=== PATIENT | male | born 1940 | race Caucasian/White ===

== ENCOUNTER 2016-07-23 17:13 | Inpatient (IN) ==
--- NOTE | 2016-07-23 18:01 | Emergency Department Note ---
Arrival - Arrival ED Nursing Triage Note: Patient with a history of prostate and bladder cancer presents for urinary retention last Friday. His scrotum is edematous and erythema is present. Abscess present to left of his scrotum. Highest fever today 101.3 Mode of Arrival: Stretcher Limitations: No Limitations Source: Patient <Jacob Monrealmaria Bernardo - Last Filed: 07/23/16 17:59> <Gómez Bartlett - Last Filed: 07/23/16 20:02> - Arrival Chief Complaint: Urogenital - Male Stated Complaint: urinary retention Time Seen by Provider: 07/23/16 17:55 - History of Present Illness HPI Narrative: This is a 75-year-old male patient who presents the ED complaining of inability to urinate. Patient has a history of prostate cancer and also squamous cell carcinoma of the bladder. He is presently going undergoing radiation treatment and is on his seventh week of radiation to his bladder. Patient was seen here 6 nights ago with some drainage to a lesion just to the right of the penis. She was placed on Cipro at that time. Patient states he is only able to go small amounts appear like his bladder will not empty. Patient also reports some fever today. (Miller Monreal) Allergies/Adverse Reactions: Allergies Allergy/AdvReac Type Severity Reaction Status Date / Time No Known Allergies Allergy Unverified 07/31/15 12:08 Home Medications: Home Medications Medication Instructions Recorded Confirmed Type Amlodipine Besylate/Benazepril 1 each PO DAILY #30 capsule 07/31/15 07/23/16 Rx [Lotrel 10-20 mg Capsule] Bicalutamide 50 mg PO DAILY 02/07/16 07/23/16 History Finasteride 5 mg PO DAILY 02/07/16 07/23/16 History Tamsulosin [Flomax] 0.4 mg PO BIDAC 02/07/16 07/23/16 History Ciprofloxacin Tab [Cipro Tab] 500 mg PO BID #20 tablet 07/17/16 07/23/16 Rx HYDROcodone/ACETAMIN 7.5-325 1 tablet PO Q6H PRN #20 tablet 07/17/16 07/23/16 Rx [[place] 7.5-325] Review of System - Review of System 12 point system: reviewed and no additional remarkable complaints except as stated - Review of System Constitutional: Present: chills, fever Respiratory: Absent: cough Cardiovascular: Absent: chest pain Gastrointestinal: Absent: abdominal pain, nausea, vomiting Genitourinary male: Present: urgency, other (inability to urinate) <Miller Monreal - Last Filed: 07/23/16 17:59> Medical,Surgical,& Family Hx - Medical History Cardio: History of: Hypertension Respiratory: History of: COPD Genitourinary: History of: Prostate Problems, Genitourinary Cancer (also squamous cell carcinoma of the bladder along with prostate cancer), Problems (Bladder CA) - Surgical History HEENT Surgeries: Surgical HX of: Eye Surgery Reproductive Surgeries: Surgical HX of;: Prostate Surgery - Family History Family History: Reports;: Family Cancer, Family Hypertension - Social History Smoking Status: Current every day smoker Frequency of Alcohol Use: None Type of Drug Use: None <Miller Monreal - Last Filed: 07/23/16 17:59> Exam - General General appearance: alert, in distress - Head Head exam: Present: atraumatic (secondary to inability to urinate.) - Eye Eye exam: Present: normal appearance, PERRL, EOMI - ENT ENT exam: Present: normal exam, normal oropharynx, TM's normal bilaterally - Neck Neck exam: Present: normal inspection - Chest Chest inspection: Present: normal inspection - Respiratory Respiratory exam: Present: normal lung sounds bilaterally. Absent: rales, respiratory distress - Cardiovascular Cardiovascular exam: Present: normal rhythm, tachycardia - Abdominal Exam Abdominal exam: Present: soft, tenderness (over the bladder. ) - Rectal Exam Rectal exam: Present: deferred - exam: Present: scrotal swelling (and erythema), other (patient has a hard mass noted just inferior to the bladder. This area is erythematous and swollen and tender. There is also an area of excoriation and purulent drainage noted to the right of the penis.) - Extremities Exam Extremities exam: Present: normal inspection - Back Exam Back exam: Present: normal inspection - Neurological Exam Neurological exam: Present: alert, oriented X3, CN II-XII intact. Absent: motor sensory deficit - Psychiatric Psychiatric exam: Present: normal affect, normal mood - Skin Skin exam: Present: warm, dry <Miller Monreal - Last Filed: 07/23/16 17:59> Vital Signs: Vital Signs Temperature 99.6 F 07/23/16 17:21 Pulse Rate 106 H 07/23/16 17:21 Respiratory Rate 24 07/23/16 17:21 Blood Pressure 145/74 07/23/16 17:21 O2 Sat by Pulse Oximetry 99 07/23/16 17:21 Course <Miller Monreal - Last Filed: 07/23/16 17:59> - Consultations Time: 20:02 <Gómez Bartlett - Last Filed: 07/23/16 20:02> - Consultations Consultation #1: Dr. Bereket Vides will admit to Dr. Cornelius Rowe. 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
[2016-07-23] MEDS ORDERED: SODIUM CHLORIDE 0.9% 500 ML IV STA (18:21)
[2016-07-23 19:07] LABS: Basophils # 0.1 10*3/uL (0.0-0.2); Basophils % 0.2 % (0.0-0.8); Eosinophils # 0.2 10*3/uL (0.0-0.87); Eosinophils % 0.7 % (0.00-10.9); Hematocrit 26.3 VOL% (42.0-52.0); Immature Granulocytes % 2.4 %; Lymphocytes # 1.3 10*3/uL (1.4-4.0); Lymphocytes % 4.6 % (21.2-54.2); Mean Corpuscular HGB Conc 34.2 GM/DL (32-36); Mean Corpuscular Hemoglobin 31 PG (27-34); Mean Corpuscular Volume 89.8 FL (87-102); Mean Platelet Volume 9.9 FL (9.6-12.0); Monocytes # 1.3 10*3/uL (0.11-0.8); Monocytes % 4.5 % (1.7-12.7); Neutrophils # 25.4 10*3/uL (1.4-7.4); Neutrophils % 87.6 % (38.7-73.9); Platelet Count 570 T/CUMM (130-400); Red Blood Count 2.93 MC/CUMM (3.8-5.5); Red Cell Distribution Width 13.8 % (9.3-17.3)
[2016-07-23 19:10] LABS: Calcium 8.5 MG/DL (8.5-10.1); Potassium 4.8 MMOL/L (3.5-5.1)
[2016-07-23 19:29] LABS: Apearance,Urine CLOUDY (Clear); Bacteria,Urine Few /HPF (Few); Bilirubin,Urine Negative (Negative); Blood, Urine Large mg/dL (Negative); Glucose,Urine (UA) Negative (Negative); Ketones,Urine Negative (Negative); Nitrite,Urine Negative (Negative); Protein,Urine 100 MG/DL; RBC,Urine 29 /HPF (0-4); Urine Color Amber (Yellow); Urine Specific Gravity 1.011 (1.001-1.035); Urine Urobilinogen < 2.0 EU/DL (0.2-1.0); WBC,Urine 1333 /HPF (0-6)
[2016-07-23] MEDS ORDERED: ACETAMINOPHEN 325 MG TABLET PO PRN (20:02)
[2016-07-23] MEDS ORDERED: MORPHINE 2 MG/1 ML SYRINGE IV PRN (20:02)
[2016-07-23] MEDS ORDERED: ONDANSETRON 4 MG/2 ML VIAL IV PRN (20:02)
[2016-07-23] MEDS ORDERED: IBUPROFEN 600 MG TABLET PO PRN (20:02)
[2016-07-23 20:27] LABS: Band Neutrophils 2 % (0-10); Burr Cells Few; Lymphocytes 5 % (20-55); Platelet Estimate Increased; Poikilocytosis 1+; Segmented Neutrophils 86 % (50-85); Total Cells Counted 100
[2016-07-23] MEDS ORDERED: ZALEPLON 5 MG CAPSULE PO PRN (22:21)
[2016-07-23] MEDS: SODIUM CHLORIDE 0.9% 1,000 ML IV SCH (22:47)
[2016-07-23] MEDS: DOCUSATE SODIUM 100 MG CAPSULE PO SCH (22:48)
[2016-07-23] MEDS: CEFTAROLINE 300 MG in SODIUM CHLORIDE 0.9% 100 ML IV SCH (22:48)
--- NOTE | 2016-07-24 08:21 | Family Practice History&Phys ---
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 Current Visit: Yes (5) metastatic disease right groin Status: Acute Assessment and plan: Workup is in progress. Dr. Jake Velásquez plans to apply radiation therapy to the area if metastatic disease Current Visit: Yes (6) carcinoma of the prostate Status: Chronic Assessment and plan: Presently under therapy Current Visit: No (7) chronic obstructive pulmonary disease Status: Chronic Assessment and plan: Stable at present Current Visit: No (8) hypertension Status: Chronic Assessment and plan: Stable on present medications Current Visit: No History of Present Illness Chief complaint: urinary retention, carcinoma urinary bladder History of present illness: Mr. Snyder is a 75 year old male This is a 75-year-old male patient who presents the ED complaining of inability to urinate. Patient has a history of prostate cancer and also squamous cell carcinoma of the bladder. He is presently going undergoing radiation treatment and is on his seventh week of radiation to his bladder. Patient was seen here 6 nights ago with some drainage to a lesion just to the right of the penis. She was placed on Cipro at that time. Patient states he is only able to go small amounts appear like his bladder will not empty. Patient also reports some fever today. Patient has had a progressive decline. Dr. Jake Velásquez feels the mass in the right groin is probable metastatic disease. He obtained a CT of the area last Friday and results are pending. Patient presently unable to void R function at home. In view of history was admitted for further evaluation and therapy Home Medications Medication Instructions Recorded Confirmed Type Amlodipine Besylate/Benazepril 1 each PO DAILY #30 capsule 07/31/15 07/23/16 Rx [Lotrel 10-20 mg Capsule] Bicalutamide 50 mg PO DAILY 02/07/16 07/23/16 History Finasteride 5 mg PO DAILY 02/07/16 07/23/16 History Tamsulosin [Flomax] 0.4 mg PO BIDAC 02/07/16 07/23/16 History Ciprofloxacin Tab [Cipro Tab] 500 mg PO BID #20 tablet 07/17/16 07/23/16 Rx HYDROcodone/ACETAMIN 7.5-325 1 tablet PO Q6H PRN #20 tablet 07/17/16 07/23/16 Rx [[place] 7.5-325] Allergies Allergy/AdvReac Type Severity Reaction Status Date / Time No Known Allergies Allergy Unverified 07/31/15 12:08 Medical,Surgical,& Family Hx - Medical History Cardio: History of: Hypertension Respiratory: History of: COPD Genitourinary: History of: Prostate Problems, Genitourinary Cancer (also squamous cell carcinoma of the bladder along with prostate cancer), Problems (Bladder CA) - Surgical History HEENT Surgeries: Surgical HX of: Eye Surgery Reproductive Surgeries: Surgical HX of;: Prostate Surgery - Family History Family History: Reports;: Family Cancer, Family Hypertension - Social History Smoking Status: Current every day smoker Have you smoked in the last 12 months: Yes Time spent discussing smoking cessation with patient: 3 to 10 minutes Frequency of Alcohol Use: None Type of Drug Use: None Marital Status: Lives With:: Spouse Functional capacity: uses cane/walker Exam - Constitutional Vitals: Period Temp Pulse Resp BP Sys/[place] Pulse Ox Last 24 Hr 97.4 F-98.8 F 82-84 20-20 133-136/62-63 98-98 General appearance: mild distress, under weight - Head Head exam: Present: normal inspection - ENT ENT exam: Present: normal exam - Neck Neck exam: Present: normal inspection - Respiratory Respiratory exam: Present: clear to auscultation bilaterally - Cardiovascular Cardiovascular exam: Present: regular rate and rhythm - GI/Abdominal GI/Abdominal exam: Present: normal bowel sounds, other (patient has significant edema. Scrotum with a 4 cm hard mass with area of skin breakdown with purulent versus tumor appearance) - Extremities Exam Extremities exam: Present: normal inspection - Back Exam Back exam: Present: normal inspection - Neurological Exam Neurological exam: Present: alert - Psychiatric Psychiatric exam: Present: flat affect - Skin Skin exam: Present: normal color Results - Labs CBC & BMP: 07/23/16 18:24 07/23/16 18:24
[2016-07-24] MEDS ORDERED: CEFTAROLINE 600 MG in SODIUM CHLORIDE 0.9% 100 ML IV SCH ×2 (08:30→09:00)
[2016-07-24] MEDS: amLODIPine 10 MG TABLET PO SCH (11:52)
[2016-07-24] MEDS: FINASTERIDE 5 MG TABLET PO SCH (11:53)
[2016-07-24] MEDS: TAMSULOSIN 0.4 MG CAPSULE PO SCH ×2 (11:53→19:34)
[2016-07-24] MEDS: DOCUSATE SODIUM 100 MG CAPSULE PO SCH ×2 (11:53→20:13)
[2016-07-24] MEDS: PANTOPRAZOLE 40 MG TABLET PO SCH (11:55)
[2016-07-24] MEDS: LEVOFLOXACIN INJ 500 MG in PREMIX 1 EACH IV SCH (11:55)
[2016-07-24] MEDS: BICALUTAMIDE 50 MG TABLET PO SCH (12:13)
[2016-07-24] MEDS: BENAZEPRIL 40 MG TABLET PO SCH (12:14)
[2016-07-24] MEDS: SODIUM CHLORIDE 0.9% 1,000 ML IV SCH ×2 (12:16→23:52)
--- NOTE | 2016-07-24 13:43 | Urology Consultation ---
History of Present Illness - Data of Consult Consult date: 07/24/16 - Consult Narrative History of present illness: Mr. Snyder is a 75 year old male Mr. Snyder is known to me. This 75-year-old white male has a past history of prostate cancer post radiation with a recurrence and he failed salvage cryotherapy and is now on hormone therapy. In January of last year he had a cystoscopic exam and a bladder biopsy that showed squamous carcinoma and he was referred to Dr. Bear who did not think he was a candidate for chemotherapy, but referred him to Dr. Velásquez for radiation. I talked to Dr. Velásquez's office and the patient recently had a CT scan shows bilateral hydronephrosis with a large groin nodes and probably progression of his bladder cancer. I'm going to try to get this report put into the computer for this admission. The patient has a history of incomplete bladder emptying he does intermittent self- catheterization but on occasion he is unable to catheterize himself. He was seen in the emergency room last week and apparently was given antibiotics. He now has an elevated white count and evidence of pyuria on urinalysis but his pulmonary urine culture is negative and this may be due to a previous outpatient antibiotics. The patient was unable to void when he was in the emergency room this admission and has a Daily catheter and now. On physical examination he's got an indurated draining mass in the right groin is probably metastatic cancer he's got scrotal swelling with bilateral induration and tenderness of the testicles which possibly represents epididymoorchitis the patient has an elevated creatinine and this is probably due to the bilateral hydronephrosis noted on the CT scan done in early July recommended we leave the Daily catheter for now on and continue IV antibiotics. The patient's prognosis is very poor. I will also put in a consult to Dr. Bear although he previously has indicated patient is not a candidate for chemotherapy but I will see if he has any other suggestions. CC: Cornelius Rowe, DO - Home Medications and Allergies Home Medications: Home Medications Medication Instructions Recorded Confirmed Type Amlodipine Besylate/Benazepril 1 each PO DAILY #30 capsule 07/31/15 07/23/16 Rx [Lotrel 10-20 mg Capsule] Bicalutamide 50 mg PO DAILY 02/07/16 07/23/16 History Finasteride 5 mg PO DAILY 02/07/16 07/23/16 History Tamsulosin [Flomax] 0.4 mg PO BIDAC 02/07/16 07/23/16 History Ciprofloxacin Tab [Cipro Tab] 500 mg PO BID #20 tablet 07/17/16 07/23/16 Rx HYDROcodone/ACETAMIN 7.5-325 1 tablet PO Q6H PRN #20 tablet 07/17/16 07/23/16 Rx [[place] 7.5-325] Allergies/Adverse Reactions: Allergies Allergy/AdvReac Type Severity Reaction Status Date / Time No Known Allergies Allergy Unverified 07/31/15 12:08 Exam - Constitutional Vitals: Period Temp Pulse Resp BP Sys/[place] Pulse Ox Last 24 Hr 97.4 F-98.8 F 82-84 20-20 133-136/62-63 98-98 Results - Labs CBC & BMP: 07/23/16 18:24 07/23/16 18:24
--- NOTE | 2016-07-24 15:38 | Ultrasound Report ---
Exam: US scrotum Date: 07/24/2016 1:59 PM Comparison: None Indication: Urinary retention, swelling, squamous cell cancer of the bladder Technique:[Multiple real-time scans were obtained of the scrotum. Ultrasound images were captured and stored. Color-flow scans obtained.] Findings: The right testicle measures 28 x 14 x 24 mm. The left testicle measures 24 x 19 x 20 mm. Color flow documented in the testicles with no definite testicular masses. The right head of the epididymis measures 7 x 6 x 7 mm. The left head of the epididymis measures 10 x 8 x 16 mm. Enlargement of the epididymis, especially the left with small right and small to moderate left hydrocele. Diffuse soft tissue swelling. Impression: No evidence of testicular mass or torsion. The left epididymis is larger in size in the right which can be seen with epididymitis, etc. Small right and small to moderate left hydrocele with diffuse soft tissue swelling which could be related infectious/inflammatory process, etc. PROCEDURE INTERPRETED AT [facility] DEPARTMENT OF RADIOLOGY Final Report Signed by: Dr. Kassie Bravo
[2016-07-25] MEDS ORDERED: CEFTAROLINE 600 MG in SODIUM CHLORIDE 0.9% 100 ML IV SCH
[2016-07-25] MEDS: SODIUM CHLORIDE 0.9% 1,000 ML IV SCH (01:59)
[2016-07-25 06:52] LABS: Basophils % 0.2 % (0.0-0.8); Eosinophils # 0.2 10*3/uL (0.0-0.87); Eosinophils % 1.4 % (0.00-10.9); Hematocrit 28.3 VOL% (42.0-52.0); Immature Granulocytes % 2.2 %; Immature Granulocytes Absolute 0.34 #; Lymphocytes # 1.7 10*3/uL (1.4-4.0); Lymphocytes % 10.5 % (21.2-54.2); Mean Corpuscular HGB Conc 31.8 GM/DL (32-36); Mean Corpuscular Hemoglobin 30 PG (27-34); Mean Corpuscular Volume 93.7 FL (87-102); Mean Platelet Volume 9.4 FL (9.6-12.0); Monocytes # 0.8 10*3/uL (0.11-0.8); Monocytes % 4.8 % (1.7-12.7); Neutrophils # 12.8 10*3/uL (1.4-7.4); Neutrophils % 80.9 % (38.7-73.9); Platelet Count 623 T/CUMM (130-400); Red Blood Count 3.02 MC/CUMM (3.8-5.5); Red Cell Distribution Width 13.7 % (9.3-17.3); White Blood Count 15.8 T/CUMM (4-12)
[2016-07-25 07:24] LABS: Albumin 1.8 G/DL (3.4-5.0); Bilirubin,Total 0.6 MG/DL (0.2-1.0); Calcium 8.6 MG/DL (8.5-10.1); Magnesium 1.7 MG/DL (1.8-2.4); Osmolality,Calculated 303.1 MOS/KG (273-304); Risk Ratio 4.32; Total Protein 5.5 G/DL (6.4-8.3); VLDL CHOLESTEROL 18.6 MG/DL
--- NOTE | 2016-07-25 07:58 | Oncology Progress Note ---
Oncology Subjective PN Interval history: This patient has squamous cell carcinoma of the bladder. He has been on radiation therapy. I have previously presented his case to tumor board. Unfortunately, there is very little that can be offered in the way of chemotherapy using conventional treatment. I am also fairly certain that his insurance carrier will not approve targeted therapy for treatment of this malignancy. Exam - Constitutional Vitals: Period Temp Pulse Resp BP Sys/[place] Pulse Ox Last 24 Hr 97.6 F-98.6 F 74-87 2-24 131-148/51-70 98-100 Results - Labs CBC & BMP: 07/25/16 06:15 07/25/16 06:15
--- NOTE | 2016-07-25 08:17 | Urology Progress Note ---
Urology - PN: Subj Interval history: The patient had a CT scan earlier this month and I'm again not able to read this report in his current chart. I will again called x-ray and see if they can get the scan report make to scan report available to us. His creatinine has improved. I discussed the bilateral hydronephrosis seen on the CT scan with the patient and his and has suggested at some point the patient may need bilateral nephrostomy tubes to preserve renal function. Also at some point the patient is going to need to consider hospice since he is not a candidate for further therapy after being evaluated by Dr. Bear . Scrotal ultrasound was compatible with epididymitis Exam - Constitutional Vitals: Period Temp Pulse Resp BP Sys/[place] Pulse Ox Last 24 Hr 97.6 F-98.6 F 74-87 2-24 131-148/51-70 98-100 Results - Labs CBC & BMP: 07/25/16 06:15 07/25/16 06:15
--- NOTE | 2016-07-25 08:24 | Family Practice Progress Note ---
Exam (Progress Note) - Constitutional Vitals: Period Temp Pulse Resp BP Sys/[place] Pulse Ox Last 24 Hr 97.6 F-98.6 F 74-87 2-24 131-148/51-70 98-100 Results - Labs CBC & BMP: 07/25/16 06:15 07/25/16 06:15 Assessment and Plan (1) urinary retention Status: Acute Assessment and plan: Have placed Daily catheter and will consult urology Current Visit: Yes (2) UTI (urinary tract infection) Status: Inactive Assessment and plan: We'll obtain a urine C&S and start appropriate antibiotics Current Visit: No (3) squamous cell carcinoma urinary bladder Status: Acute Assessment and plan: Patient presently receiving radiation therapy Current Visit: No (4) 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 Current Visit: Yes (5) metastatic disease right groin Status: Acute Assessment and plan: Workup is in progress. Dr. Jake Velásquez plans to apply radiation therapy to the area if metastatic disease Current Visit: Yes (6) carcinoma of the prostate Status: Chronic Assessment and plan: Presently under therapy Current Visit: No (7) chronic obstructive pulmonary disease Status: Chronic Assessment and plan: Stable at present Current Visit: No (8) hypertension Status: Chronic Assessment and plan: Stable on present medications Current Visit: No
--- NOTE | 2016-07-25 08:30 | Family Practice Progress Note ---
Family Practice - PN: Subj Interval history: Patient generally feels better. I discuss case in detail with Dr. Hopkins. CT scan performed by Dr. Jake Velásquez reveals bilateral hydronephrosis was a large groin nodule on the right side which would be consistent with clinical findings. This is not a abscess and is a solid tumor and is felt like to be metastatic disease from his known bladder cancer. Dr. Trujillo is discussed in detail with family about placing bilateral stents. I have discussed this further. I spent significant amount of time reviewing all aspects of his case. Patient and now have a good understanding of the extremely poor prognosis. They are considering the stent placement and hospice. The patient had probable urosepsis on admission but cultures are negative. He did been on oral Cipro for a number of days prior to admission which probably accounts for the negative cultures. White blood cell count on admission was 21,000. Scrotal ultrasound revealed possible epididymitis but mostly diffuse soft tissue swelling secondary to inflammatory changes probably from the metastatic disease and cancer. Patient was not able to do self catheterizations at home. Advised that hospice would be able to assist with this if needed as well as providing necessary medications.. Plan to continue his IV antibiotics for several more days. They will notify me with the decision about stents and hospice. Both seem to have a good understanding and if accepted to swell. Exam (Progress Note) - Constitutional Vitals: Period Temp Pulse Resp BP Sys/[place] Pulse Ox Last 24 Hr 97.6 F-98.6 F 74-87 2-24 131-148/51-70 98-100 Results - Labs CBC & BMP: 07/25/16 06:15 07/25/16 06:15 Assessment and Plan (1) urinary retention Status: Acute Assessment and plan: Have placed Daily catheter and will consult urology Current Visit: Yes (2) UTI (urinary tract infection) Status: Inactive Assessment and plan: We'll obtain a urine C&S and start appropriate antibiotics Current Visit: No (3) squamous cell carcinoma urinary bladder Status: Acute Assessment and plan: Patient presently receiving radiation therapy Current Visit: No (4) 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 Current Visit: Yes (5) metastatic disease right groin Status: Acute Assessment and plan: Workup is in progress. Dr. Jake Velásquez plans to apply radiation therapy to the area if metastatic disease Current Visit: Yes (6) carcinoma of the prostate Status: Chronic Assessment and plan: Presently under therapy Current Visit: No (7) chronic obstructive pulmonary disease Status: Chronic Assessment and plan: Stable at present Current Visit: No (8) hypertension Status: Chronic Assessment and plan: Stable on present medications Current Visit: No
[2016-07-25] MEDS: LEVOFLOXACIN INJ 500 MG in PREMIX 1 EACH IV SCH (09:24)
[2016-07-25] MEDS: BICALUTAMIDE 50 MG TABLET PO SCH (09:40)
[2016-07-25] MEDS: BENAZEPRIL 40 MG TABLET PO SCH (09:41)
[2016-07-25] MEDS: amLODIPine 10 MG TABLET PO SCH (09:42)
[2016-07-25] MEDS: PANTOPRAZOLE 40 MG TABLET PO SCH (09:42)
[2016-07-25] MEDS: TAMSULOSIN 0.4 MG CAPSULE PO SCH ×2 (09:42→16:33)
[2016-07-25] MEDS: FINASTERIDE 5 MG TABLET PO SCH (09:43)
[2016-07-25] MEDS: DOCUSATE SODIUM 100 MG CAPSULE PO SCH ×2 (09:43→21:19)
[2016-07-25] MEDS: MAGNESIUM SULF IV SCH (10:56)
[2016-07-25] MEDS: SODIUM CHLORIDE 0.9% IV SCH (10:56)
[2016-07-25] MEDS: CEFTAROLINE 300 MG in SODIUM CHLORIDE 0.9% 100 ML IV SCH (11:06)
--- NOTE | 2016-07-25 11:15 | Physician Query Form ---
CLICK EDIT DOCUMENT TO SELECT QUERY ANSWER --> OK --> SIGN Jaquelin Bartlett RN, CCDS Certified Clinical Dietitian Research W) [phone] (f) [phone] [email or web address] PROVIDERS: Make your selection(s) from the choices in EACH section by typing an "x" and enter comments in the comment section. Please use your independent medical judgment in providing your response. This request does not imply that any particular answer is desired or expected. CLINICAL INDICATORS: (Providers should not edit this section) The medical record indicates that the patient was admitted with the "inability to urinate", Epididymitis, creatinine of 2.60# on admission that has dropped to 1.30# on the 9th, GFR of 21# that has increased to 49 on the 9th and the patient is on NS infusion. Clarify which of the following most accurately represents the patient's renal status: ( ) Acute kidney injury (non-traumatic) ( ) Acute renal failure ( ) Acute renal failure with underlying Chronic Kidney Disease (CKD) - please provide stage below ( ) Acute renal failure with pathological renal lesion ( ) Acute renal failure with necrosis ( ) tubular ( ) medullary ( ) cortical ( ) CKD - please provide stage below ( ) End Stage Renal Disease ( ) Acute interstitial nephritis ( ) Hepatorenal syndrome ( x) Other, please specify: ( ) Clinically unable to determine Chronic Kidney Disease Stages Source: National Kidney Disease Foundation ( ) Stage I (eGFR > or = 90) ( ) Stage II (eGFR 60 - 89) (x ) Stage III (eGFR 30 - 59) ( ) Stage IV (eGFR 15 - 29) ( ) Stage V (eGFR < 15 or dialysis) COMMENTS: Renal insufficiency is multifactorial. Secondary to hydronephrosis and volume depletion Use of terms such as suspected, likely, or probable (associated with a specific diagnosis that is being evaluated, monitored, or treated as if it exists) are acceptable and can be restated in the discharge summary if not ruled out. MTDD
--- NOTE | 2016-07-25 13:44 | Urology Progress Note ---
Urology - PN: Subj Interval history: CT done by Dr. Velásquez shows fluid collection around the bladder and the radiologist could not rule out a bladder leak so i will check a cystogram. Exam - Constitutional Vitals: Period Temp Pulse Resp BP Sys/[place] Pulse Ox Last 24 Hr 97.6 F-98.4 F 79-87 2-24 131-148/51-70 98-100 Results - Labs CBC & BMP: 07/25/16 06:15 07/25/16 06:15
--- NOTE | 2016-07-25 16:00 | Fluoroscopy Report ---
Exam: [place] cystogram Date: 07/25/2016 1:44 PM Comparison: None Indication: Bladder and prostate cancer Technique:[Fluoroscopy time of 1 minute 40 seconds documented. 50 cc of Cysto-Conray II instilled into the bladder under fluoroscopic control.] Findings: On the registered midwife film, there are multiple radioactive seeds noted in the prostate bed. Sclerotic ossific findings are noted in the right pubic bones/acetabulum. Diffuse arterial calcifications are noted. Only a small amount of contrast was instilled into the urinary bladder via the Daily catheter. The bladder appears to be small in capacity with an irregular contour. Rapid leakage of the contrast material from the left base of the bladder/urethra location extending into the perineum/ scrotal location. No additional contrast material was injected into the bladder because of the leakage. Impression: Small capacity urinary bladder with irregular contour with known bladder carcinoma. Large leak in the left side of the base of the bladder/urethra extending into the left perineum/scrotal location. Radioactive seeds in the prostate bed with sclerotic osseous metastatic disease. These findings were discussed with Dr. Hopkins at 3:45 PM on on 07/25/2016. Critical test results PROCEDURE INTERPRETED AT [facility] DEPARTMENT OF RADIOLOGY Final Report Signed by: Dr. Kassie Bravo
[2016-07-26] MEDS: CEFTAROLINE 300 MG in SODIUM CHLORIDE 0.9% 100 ML IV SCH (00:39)
[2016-07-26] MEDS: MAGNESIUM SULF IV SCH ×2 (04:56→16:35)
[2016-07-26] MEDS: SODIUM CHLORIDE 0.9% IV SCH ×2 (04:56→16:35)
[2016-07-26 05:49] LABS: Basophils % 0.2 % (0.0-0.8); Eosinophils # 0.3 10*3/uL (0.0-0.87); Eosinophils % 1.9 % (0.00-10.9); Hematocrit 26.9 VOL% (42.0-52.0); Hemoglobin 8.9 GM/DL (14.0-18.0); Immature Granulocytes % 2.1 %; Immature Granulocytes Absolute 0.33 #; Lymphocytes # 1.7 10*3/uL (1.4-4.0); Mean Corpuscular HGB Conc 33.1 GM/DL (32-36); Mean Corpuscular Hemoglobin 30 PG (27-34); Mean Corpuscular Volume 91.2 FL (87-102); Mean Platelet Volume 9.3 FL (9.6-12.0); Monocytes # 0.7 10*3/uL (0.11-0.8); Monocytes % 4.6 % (1.7-12.7); Neutrophils # 12.5 10*3/uL (1.4-7.4); Neutrophils % 80.2 % (38.7-73.9); Platelet Count 652 T/CUMM (130-400); Red Blood Count 2.95 MC/CUMM (3.8-5.5); Red Cell Distribution Width 13.6 % (9.3-17.3); White Blood Count 15.5 T/CUMM (4-12)
[2016-07-26 06:23] LABS: Calcium 8.3 MG/DL (8.5-10.1); Magnesium 1.8 MG/DL (1.8-2.4); Osmolality,Calculated 298.1 MOS/KG (273-304); Potassium 3.8 MMOL/L (3.5-5.1)
[2016-07-26] MEDS: SODIUM CHLORIDE 0.9% 1,000 ML IV SCH (07:27)
--- NOTE | 2016-07-26 07:46 | Urology Progress Note ---
Urology - PN: Subj Interval history: The patient had a fluid collection around the bladder on CT scan done by Dr. Velásquez. A cystogram was done yesterday that confirmed there is a bladder leak. The patient will need to keep the Daily catheter and as long as he has any output from the bladder and we need to try to divert the urine away from the bladder so I have requested bilateral percutaneous nephrostomies. After the nephrostomies report and if the patient has no output from the bladder then we can remove the Daily. I would like to wait several days after the nephrostomies and then restudy the abdomen with a CT scan to see the status of the fluid collection around the bladder. Exam - Constitutional Vitals: Period Temp Pulse Resp BP Sys/Dorantes Pulse Ox Last 24 Hr 97.8 F-99.0 F 80-86 20-20 126-144/51-70 98-98 Results - Labs CBC & BMP: 07/26/16 05:25 07/26/16 05:25
--- NOTE | 2016-07-26 08:14 | Family Practice Progress Note ---
Family Practice - PN: Subj Interval history: Patient was admitted with urinary retention, fever, progressive weakness and decline. 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 He has subsequently developed metastasis. He is presently undergoing radiation therapy and has developed a large necrotic lymph node in the right groin. This is definitely metastatic disease. Recent CT scan revealed questionable leakage around the urinary bladder as well as bilateral hydronephrosis. Cystogram performed yesterday reveals large leak on the left side at the base of the bladder and urethra. Dr. Hopkins plans surgery this a.m. for placements of stents as well as possible other procedure. Family and patient are aware of the extremely poor prognosis. Patient has had low-grade fever with a significantly elevated white blood cell count on admission. His cultures were negative but patient was on Cipro at time of admission. Urine is consistent with urinary tract infection. I have had him on IV antibiotics and will continue this is weekend. I have consulted social service liaison to set up hospice on discharge probably Friday. Exam (Progress Note) - Constitutional Vitals: Period Temp Pulse Resp BP Sys/Dorantes Pulse Ox Last 24 Hr 97.8 F-99.0 F 80-84 20-20 126-136/51-70 98-98 Results - Labs CBC & BMP: 07/26/16 05:25 07/26/16 05:25 Assessment and Plan (1) urinary retention Status: Acute Assessment and plan: Have placed Daily catheter and will consult urology Current Visit: Yes (2) UTI (urinary tract infection) Status: Inactive Assessment and plan: We'll obtain a urine C&S and start appropriate antibiotics Current Visit: No (3) squamous cell carcinoma urinary bladder Status: Acute Assessment and plan: Patient presently receiving radiation therapy Current Visit: No (4) 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 Current Visit: Yes (5) metastatic disease right groin Status: Acute Assessment and plan: Workup is in progress. Dr. Jake Velásquez plans to apply radiation therapy to the area if metastatic disease Current Visit: Yes (6) carcinoma of the prostate Status: Chronic Assessment and plan: Presently under therapy Current Visit: No (7) chronic obstructive pulmonary disease Status: Chronic Assessment and plan: Stable at present Current Visit: No (8) hypertension Status: Chronic Assessment and plan: Stable on present medications Current Visit: No
[2016-07-26] MEDS: LEVOFLOXACIN INJ 500 MG in PREMIX 1 EACH IV SCH (08:22)
[2016-07-26] MEDS: BENAZEPRIL 40 MG TABLET PO SCH (08:24)
[2016-07-26] MEDS: amLODIPine 10 MG TABLET PO SCH (08:25)
[2016-07-26] MEDS ORDERED: CEFTAROLINE 600 MG in SODIUM CHLORIDE 0.9% 100 ML IV SCH (09:00)
[2016-07-26] MEDS ORDERED: fentaNYL 100 MCG/2 ML VIAL IV ONE (09:32)
[2016-07-26] MEDS ORDERED: MIDAZOLAM 2 MG/2 ML VIAL IV ONE (09:32)
[2016-07-26] MEDS ORDERED: DIAZEPAM 5 MG TABLET PO ONE ×2 (09:32)
--- NOTE | 2016-07-26 09:39 | IR History and Physical Update ---
IR Pre-Procedure - History and Physical H&P was reviewed, the patient examined and there: are no changes in the patients condition since last H&P was completed. Reason for procedure:: 75 yo M with bladder outlet obstruction, urine leak at bladder, h/o prostate ca. Needs bilateral perc neph for urine diversion. - Dictation Physical: refer to H&P completed by admitting physician - Physical Exam Vital Signs: Last Vital Signs Temp 98.1 F 07/26/16 07:32 Pulse 79 07/26/16 07:32 Resp 20 07/26/16 07:32 BP 153/63 07/26/16 07:32 Pulse Ox 98 07/26/16 07:32 Mental Status: alert and oriented - Sedation IR anesthesia plan for sedation: minimal ASA Class: III - Risks Risks: Procedures explained. Risks discussed include, but not limited to, the following:[ pain, bleeding, infection] All questions answered. The following alternatives were discussed:[none ] Risks and benefits discussed with: patient, spouse Consent obtained from: patient Assessment and Plan - Time spent with patient Time spent with patient: Less than 30 minutes (1) urinary retention Status: Acute Assessment and plan: A: DEL CASTILLO from prostate and bladder cancer. P: Bilateral perc neph. Current Visit: Yes
[2016-07-26 10:02] LABS: INR 1.2; PT Patient Result 12.6 SECS; Partial Thromboplastin Time 32.1 SECS (0-40)
[2016-07-26] MEDS ORDERED: fentaNYL 100 MCG/2 ML VIAL ONE (12:24)
[2016-07-26] MEDS ORDERED: MIDAZOLAM 2 MG/2 ML VIAL ONE (12:24)
[2016-07-26] MEDS ORDERED: ONDANSETRON 4 MG/2 ML VIAL ONE (13:10)
[2016-07-26] MEDS: TAMSULOSIN 0.4 MG CAPSULE PO SCH ×2 (14:13→16:35)
[2016-07-26] MEDS: PANTOPRAZOLE 40 MG TABLET PO SCH (14:14)
[2016-07-26] MEDS: DOCUSATE SODIUM 100 MG CAPSULE PO SCH ×2 (14:14→21:01)
[2016-07-26] MEDS: BICALUTAMIDE 50 MG TABLET PO SCH (14:14)
[2016-07-26] MEDS: FINASTERIDE 5 MG TABLET PO SCH (14:14)
--- NOTE | 2016-07-26 14:43 | Interventional Radiology Rpt ---
IR nephrostomy perc BI Indication: Bladder outlet obstruction secondary to combination of prostate cancer and bladder cancer. Permanent urinary diversion required. BILATERAL PERCUTANEOUS NEPHROSTOMY Description: A formal timeout was performed. Patient was rolled prone on the fluoroscopy table. Maximum sterile barrier technique was instituted. Sonographic evaluation of both kidneys shows hydronephrosis on the left and a relatively decompressed right urinary collecting system. The right kidney was punctured with an AccuStick needle using sonographic guidance. Captured sonographic image documents position of the needle. Needle was exchanged over a wire for a sheath through which a gentle contrast injection was performed confirming positioning in the urinary collecting system. Sheath was then removed and over a wire and replaced with an 8 Jamaican pigtail drain catheter. The pigtail was formed in the renal pelvis, anchored with a combination of 3-0 Prolene stitch and a StatLock device, and hooked to a leg bag. The left kidney was then punctured with an AccuStick needle using sonographic guidance. A captured sonographic image documents the needle position. The needle was then exchanged over wire for a sheath and a gentle contrast injection confirmed positioning of the sheath in the urinary collecting system. The sheath was then exchanged over wire for an 8 Jamaican pigtail drain catheter. The pigtail was formed in the renal pelvis, anchored with Prolene stitch and a StatLock device and hooked to a leg bag. Patient tolerated the procedure well. Contrast: Total Omnipaque 350, 20 cc. Fluoroscopy: Total 2.8 minutes. Conscious sedation: Under physician supervision, Versed 1 mg, fentanyl 25 mcg were administered intravenously for conscious sedation. Vital signs, including pulse oximetry, heart rate and blood pressure, continuously monitored by nursing present in the room. Physicians spent 25 minutes [id number] sedation time with the patient. Impression: Uncomplicated bilateral percutaneous nephrostomies. PROCEDURE INTERPRETED AT [facility] DEPARTMENT OF RADIOLOGY Final Report Signed by: Talat Alvarez M.D.
[2016-07-27] MEDS: MAGNESIUM SULF IV SCH ×3 (02:49→23:55)
[2016-07-27] MEDS: SODIUM CHLORIDE 0.9% IV SCH ×3 (02:49→23:55)
[2016-07-27 05:37] LABS: Basophils # 0.1 10*3/uL (0.0-0.2); Basophils % 0.3 % (0.0-0.8); Eosinophils # 0.4 10*3/uL (0.0-0.87); Eosinophils % 2.7 % (0.00-10.9); Hematocrit 26.9 VOL% (42.0-52.0); Hemoglobin 8.9 GM/DL (14.0-18.0); Immature Granulocytes % 2.5 %; Immature Granulocytes Absolute 0.39 #; Lymphocytes # 1.6 10*3/uL (1.4-4.0); Lymphocytes % 10.6 % (21.2-54.2); Mean Corpuscular HGB Conc 33.1 GM/DL (32-36); Mean Corpuscular Hemoglobin 30 PG (27-34); Mean Corpuscular Volume 90.6 FL (87-102); Mean Platelet Volume 9.3 FL (9.6-12.0); Monocytes # 0.8 10*3/uL (0.11-0.8); Monocytes % 5.3 % (1.7-12.7); Neutrophils # 12.1 10*3/uL (1.4-7.4); Neutrophils % 78.6 % (38.7-73.9); Platelet Count 632 T/CUMM (130-400); Red Blood Count 2.97 MC/CUMM (3.8-5.5); Red Cell Distribution Width 13.7 % (9.3-17.3); White Blood Count 15.4 T/CUMM (4-12)
[2016-07-27 06:05] LABS: Albumin 1.9 G/DL (3.4-5.0); Bilirubin,Total 0.6 MG/DL (0.2-1.0); Calcium 8.4 MG/DL (8.5-10.1); Osmolality,Calculated 296.1 MOS/KG (273-304); Potassium 3.8 MMOL/L (3.5-5.1); Total Protein 5.3 G/DL (6.4-8.3)
--- NOTE | 2016-07-27 07:46 | Urology Progress Note ---
Urology - PN: Subj Interval history: No problems post bilateral percutaneous nephrostomy. His nephrostomy urine is clear. The patient still has an output from the bladder so we will need to leave the Daily in. Plan to restudy his pelvis and the fluid around the bladder with a noncontrast CT on Friday Exam - Constitutional Vitals: Period Temp Pulse Resp BP Sys/Dorantes Pulse Ox Last 24 Hr 97.6 F-98.6 F 81-92 19-22 112-141/49-87 95-100 Results - Labs CBC & BMP: 07/27/16 05:14 07/27/16 05:14
[2016-07-27] MEDS: BENAZEPRIL 40 MG TABLET PO SCH (09:08)
[2016-07-27] MEDS: FINASTERIDE 5 MG TABLET PO SCH (09:08)
[2016-07-27] MEDS: DOCUSATE SODIUM 100 MG CAPSULE PO SCH ×2 (09:09→21:15)
[2016-07-27] MEDS: TAMSULOSIN 0.4 MG CAPSULE PO SCH ×2 (09:09→16:27)
[2016-07-27] MEDS: amLODIPine 10 MG TABLET PO SCH (09:09)
[2016-07-27] MEDS: BICALUTAMIDE 50 MG TABLET PO SCH (09:09)
[2016-07-27] MEDS: LEVOFLOXACIN INJ 500 MG in PREMIX 1 EACH IV SCH (09:09)
[2016-07-27] MEDS: PANTOPRAZOLE 40 MG TABLET PO SCH (09:09)
--- NOTE | 2016-07-27 09:10 | Family Practice Progress Note ---
Family Practice - PN: Subj Interval history: Patient seen this morning he is resting well in no acute distress. His vital signs are stable, afebrile. He is alert and oriented. Weight up by 1 pound from yesterday. White count is 15.4 hemoglobin and hematocrit are stable at 8.9 and 26.9 (unchanged). BMP is stable at this time. No nausea vomiting or diarrhea. The nephrostomy tubes are in place and draining moderate amount of urine he does have a Daily in place as well. Exam (Progress Note) - Constitutional Vitals: Period Temp Pulse Resp BP Sys/Dorantes Pulse Ox Last 24 Hr 97.3 F-98.6 F 81-94 18-22 112-141/49-87 95-100 Exam: Grossly unchanged of physical exam. He is in no acute distress HEENT pupils are equally reactive to light neck is supple oropharynx negative Prevascular one out of 6 systolic ejection murmur no gallop or rub Lungs are clear in general. Extremities no clubbing cyanosis or edema Results - Labs CBC & BMP: 07/27/16 05:14 07/27/16 05:14
--- NOTE | 2016-07-28 07:51 | Family Practice Progress Note ---
Family Practice - PN: Subj Interval history: Patient seen this morning. He is resting fairly well at this time but the nurses state that he did have a little rough night last night. Got a little agitated. At present is putting out a lot of urine through both nephrostomy tubes and some through the Daily. His alert and arousable. No acute distress Exam (Progress Note) - Constitutional Vitals: Period Temp Pulse Resp BP Sys/Dorantes Pulse Ox Last 24 Hr 97.3 F-98.5 F 72-94 18-24 128-145/49-71 96-98 Exam: Grossly unchanged of physical exam. He is in no acute distress HEENT pupils are equally reactive to light neck is supple oropharynx negative Cardiovascular one out of 6 systolic ejection murmur no gallop or rub Lungs are clear in general. Extremities no clubbing cyanosis or edema Results - Labs CBC & BMP: 07/27/16 05:14 07/27/16 05:14 Assessment and Plan (1) urinary retention Status: Acute Assessment and plan: O2 1217: The nephrostomy tubes and ARE draining yellow urine at present Current Visit: Yes
[2016-07-28] MEDS: FINASTERIDE 5 MG TABLET PO SCH (08:47)
[2016-07-28] MEDS: BICALUTAMIDE 50 MG TABLET PO SCH (08:47)
[2016-07-28] MEDS: DOCUSATE SODIUM 100 MG CAPSULE PO SCH ×2 (08:47→21:16)
[2016-07-28] MEDS: BENAZEPRIL 40 MG TABLET PO SCH (08:47)
[2016-07-28] MEDS: TAMSULOSIN 0.4 MG CAPSULE PO SCH ×2 (08:48→16:06)
[2016-07-28] MEDS: PANTOPRAZOLE 40 MG TABLET PO SCH (08:48)
[2016-07-28] MEDS: amLODIPine 10 MG TABLET PO SCH (08:48)
[2016-07-28] MEDS: LEVOFLOXACIN INJ 500 MG in PREMIX 1 EACH IV SCH (08:49)
--- NOTE | 2016-07-28 10:31 | Urology Progress Note ---
Urology - PN: Subj Interval history: The patient has less output from the Daily catheter now. Plan is to recheck the CT abdomen and pelvis without contrast tomorrow if everything is stable he can be discharged when necessary Exam - Constitutional Vitals: Period Temp Pulse Resp BP Sys/Dorantes Pulse Ox Last 24 Hr 97.3 F-98.5 F 72-94 18-24 128-145/49-71 96-98 Results - Labs CBC & BMP: 07/27/16 05:14 07/27/16 05:14
[2016-07-28] MEDS: MAGNESIUM SULF IV SCH (15:18)
[2016-07-28] MEDS: SODIUM CHLORIDE 0.9% IV SCH (15:18)
[2016-07-29] MEDS: SODIUM CHLORIDE 0.9% IV SCH ×3 (00:59→19:13)
[2016-07-29] MEDS: MAGNESIUM SULF IV SCH ×3 (00:59→19:13)
[2016-07-29 06:15] LABS: Basophils % 0.2 % (0.0-0.8); Eosinophils # 0.2 10*3/uL (0.0-0.87); Eosinophils % 0.9 % (0.00-10.9); Hematocrit 28.5 VOL% (42.0-52.0); Hemoglobin 9.4 GM/DL (14.0-18.0); Immature Granulocytes % 2.1 %; Immature Granulocytes Absolute 0.48 #; Lymphocytes # 2.6 10*3/uL (1.4-4.0); Lymphocytes % 11.3 % (21.2-54.2); Mean Corpuscular Hemoglobin 30 PG (27-34); Mean Corpuscular Volume 91.3 FL (87-102); Mean Platelet Volume 9.4 FL (9.6-12.0); Monocytes # 0.9 10*3/uL (0.11-0.8); Neutrophils # 18.3 10*3/uL (1.4-7.4); Neutrophils % 81.5 % (38.7-73.9); Platelet Count 643 T/CUMM (130-400); Red Blood Count 3.12 MC/CUMM (3.8-5.5); Red Cell Distribution Width 13.7 % (9.3-17.3); White Blood Count 22.5 T/CUMM (4-12)
[2016-07-29 06:39] LABS: Band Neutrophils 1 % (0-10); Eosinophils 2 % (0-10); Hypochromasia 1+; Lymphocytes 8 % (20-55); Platelet Estimate Increased; Segmented Neutrophils 87 % (50-85); Total Cells Counted 100
[2016-07-29 06:44] LABS: Calcium 7.8 MG/DL (8.5-10.1); Osmolality,Calculated 293.3 MOS/KG (273-304); Potassium 2.9 MMOL/L (3.5-5.1)
--- NOTE | 2016-07-29 07:36 | Urology Progress Note ---
Urology - PN: Subj Interval history: I have ordered a CT of the abdomen and pelvis without contrast to look into fluid collection around the bladder today. It's okay with me to discharge the patient when necessary on hospice or home health. The patient will need a Daily catheter changed once a month and the nephrostomy tubes changed every 3 months. I will not make the patient an office appointment but will communicate with his nurse at home and he can see me in the office if there is a problem Exam - Constitutional Vitals: Period Temp Pulse Resp BP Sys/Dorantes Pulse Ox Last 24 Hr 98.3 F-99.3 F 79-99 18-20 127-148/54-87 96-99 Results - Labs CBC & BMP: 07/29/16 05:58 07/29/16 05:58
--- NOTE | 2016-07-29 09:24 | CT Report ---
CT abdomen pelvis wo con Indication: Follow-up bladder leak. CT ABDOMEN AND PELVIS WITHOUT CONTRAST DLP: 214 mGy*cm Comparison: 02/07/2016. Technique: Axial noncontrast CT images of the abdomen and pelvis were obtained. Abdomen: There are small bilateral pleural effusions are present. There is mass left lung base measuring 25 mm diameter. This was not present previously. Emphysema and scarring of both lung bases noted. Normal heart size. Calcified atheromatous disease is present. Trace pericardial effusion. Both kidneys are decompressed with bilateral percutaneous nephrostomies. The left pigtail drain is formed in the renal pelvis. No fluid around either kidney. No urinary calculi seen. Unenhanced liver, spleen, pancreas and adrenal glands appear unremarkable. Stool and gas-filled colon which is distended, and there is mild prominence without dilatation of small bowel. Pelvis: Daily catheter decompresses the urinary bladder completely. No fluid identified in the pelvis. Multiple radioactive prostate seed implants are scattered throughout the pelvic region. The wall of the sigmoid colon is thickened concentrically. Stranding of the fat throughout the pelvis noted. There is fluid present within the left inguinal canal. The right groin, lateral to the inguinal canal, there is a 34 mm hypodensity some tiny bubbles of air. The mass or fluid collection is unchanged in size from the earlier study 6 months ago. In the right groin at the inguinal ligament is a second hypodense region measuring 28 mm diameter, new. Osteopenia and degenerative changes of the lumbar spine noted. Sclerotic changes of the posterior right iliac bone and right ischium consistent with treated metastatic disease. Impression: 1. Effective decompression with external diversion of the urinary collecting system using bilateral percutaneous nephrostomies and Daily catheter. No significant urinoma identified, although some fat stranding in the pelvis is noted which may be related to chronic urine leak, or more likely, secondary to radiation or treated prostate cancer. 2. In the right groin, there are 2 adjacent hypodense collections, one of which was present 6 months ago. These may represent necrotic lymph nodes. 3. Concentric thickening of the wall of the rectosigmoid colon. Stool and gas filled colon is prominent as well consistent with adynamic ileus. 4. New mass left lung base measuring 25 mm diameter, likely metastatic in nature. Small bilateral pleural effusions. Trace pericardial effusion. 5. Treated sclerotic metastases right iliac bone. PROCEDURE INTERPRETED AT [facility] DEPARTMENT OF RADIOLOGY Final Report Signed by: Talat Alvarez M.D.
[2016-07-29] MEDS: DOCUSATE SODIUM 100 MG CAPSULE PO SCH ×2 (09:35→21:18)
[2016-07-29] MEDS: BICALUTAMIDE 50 MG TABLET PO SCH (09:35)
[2016-07-29] MEDS: FINASTERIDE 5 MG TABLET PO SCH (09:35)
[2016-07-29] MEDS: TAMSULOSIN 0.4 MG CAPSULE PO SCH ×2 (09:35→16:41)
[2016-07-29] MEDS: amLODIPine 10 MG TABLET PO SCH (09:35)
[2016-07-29] MEDS: PANTOPRAZOLE 40 MG TABLET PO SCH (09:35)
[2016-07-29] MEDS: BENAZEPRIL 40 MG TABLET PO SCH (09:35)
[2016-07-29] MEDS: POTASSIUM CHLORIDE 20 MEQ TABLET PO SCH ×2 (09:36→21:18)
[2016-07-29] MEDS: LEVOFLOXACIN INJ 500 MG in PREMIX 1 EACH IV SCH (09:36)
[2016-07-29] MEDS: POTASSIUM CHLORIDE RIDER 10 MEQ in PREMIX 1 EACH IV PRN ×5 (09:38→16:41)
[2016-07-29] MEDS: POTASSIUM CHLORIDE IV SCH ×2 (09:41→19:13)
--- NOTE | 2016-07-29 18:11 | Family Practice Progress Note ---
Family Practice - PN: Subj Interval history: Patient remains extremely weak. He scheduled to have a CT scan of the abdomen to evaluate the effectiveness of the recent nephrostomy. Very poor appetite. Trying to arrange hospice on discharge. He is a.m. potassium was 2.9. Started on IV and oral potassium supplementation. Will review CAT scan and hopefully can discharge in a.m. if all arrangements have been made Exam (Progress Note) - Constitutional Vitals: Period Temp Pulse Resp BP Sys/Dorantes Pulse Ox Last 24 Hr 98.3 F-99.5 F 82-99 18-20 115-148/52-70 96-99 Results - Labs CBC & BMP: 07/29/16 05:58 07/29/16 05:58 Assessment and Plan (1) urinary retention Status: Acute Assessment and plan: Have placed Daily catheter and will consult urology Current Visit: Yes (2) UTI (urinary tract infection) Status: Inactive Assessment and plan: We'll obtain a urine C&S and start appropriate antibiotics Current Visit: No (3) squamous cell carcinoma urinary bladder Status: Acute Assessment and plan: Patient presently receiving radiation therapy Current Visit: No (4) 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 Current Visit: Yes (5) metastatic disease right groin Status: Acute Assessment and plan: Workup is in progress. Dr. Jake Velásquez plans to apply radiation therapy to the area if metastatic disease Current Visit: Yes (6) carcinoma of the prostate Status: Chronic Assessment and plan: Presently under therapy Current Visit: No (7) chronic obstructive pulmonary disease Status: Chronic Assessment and plan: Stable at present Current Visit: No (8) hypertension Status: Chronic Assessment and plan: Stable on present medications Current Visit: No
[2016-07-30] MEDS: MAGNESIUM SULF IV SCH ×2 (05:43→09:04)
[2016-07-30] MEDS: SODIUM CHLORIDE 0.9% IV SCH ×2 (05:43→09:04)
[2016-07-30] MEDS: POTASSIUM CHLORIDE IV SCH ×2 (05:43→09:04)
[2016-07-30 06:49] LABS: Basophils # 0.1 10*3/uL (0.0-0.2); Basophils % 0.2 % (0.0-0.8); Eosinophils # 0.4 10*3/uL (0.0-0.87); Eosinophils % 1.4 % (0.00-10.9); Hematocrit 28.8 VOL% (42.0-52.0); Hemoglobin 9.4 GM/DL (14.0-18.0); Immature Granulocytes % 1.7 %; Lymphocytes # 1.7 10*3/uL (1.4-4.0); Lymphocytes % 7.1 % (21.2-54.2); Mean Corpuscular HGB Conc 32.6 GM/DL (32-36); Mean Corpuscular Hemoglobin 30 PG (27-34); Mean Corpuscular Volume 92.6 FL (87-102); Mean Platelet Volume 9.6 FL (9.6-12.0); Monocytes # 0.8 10*3/uL (0.11-0.8); Monocytes % 3.2 % (1.7-12.7); Neutrophils # 20.9 10*3/uL (1.4-7.4); Neutrophils % 86.4 % (38.7-73.9); Platelet Count 665 T/CUMM (130-400); Red Blood Count 3.11 MC/CUMM (3.8-5.5); White Blood Count 24.2 T/CUMM (4-12)
[2016-07-30 07:11] LABS: Band Neutrophils 1 % (0-10); Eosinophils 3 % (0-10); Hypochromasia 1+; Lymphocytes 6 % (20-55); Platelet Estimate Increased; Segmented Neutrophils 88 % (50-85); Total Cells Counted 100
[2016-07-30 07:12] LABS: Ovalocytes Slight
[2016-07-30 07:16] LABS: Osmolality,Calculated 290.4 MOS/KG (273-304); Potassium 3.8 MMOL/L (3.5-5.1)
--- NOTE | 2016-07-30 07:42 | Urology Progress Note ---
Urology - PN: Subj Interval history: CT scan yesterday shows resolution of the urinoma around the bladder. The patient has gotten good results from the Daily catheter and the nephrostomy tubes. Okay for discharge prn. Exam - Constitutional Vitals: Period Temp Pulse Resp BP Sys/Dorantes Pulse Ox Last 24 Hr 98.5 F-99.6 F 82-108 18-22 101-134/52-70 92-99 Results - Labs CBC & BMP: 07/30/16 06:10 07/30/16 06:10
--- NOTE | 2016-07-30 08:35 | Discharge Summary ---
Hospital Course - Hospital Course Hospital Course: Mr. Snyder is a 75 year old male This is a 75-year-old male patient who presents the ED complaining of inability to urinate. Patient has a history of prostate cancer and also squamous cell carcinoma of the bladder. He is presently going undergoing radiation treatment and is on his seventh week of radiation to his bladder. Patient was seen here 6 nights ago with some drainage to a lesion just to the right of the penis. She was placed on Cipro at that time. Patient states he is only able to go small amounts appear like his bladder will not empty. Patient also reports some fever today. Patient has had a progressive decline. Dr. Jake Velásquez feels the mass in the right groin is probable metastatic disease. He obtained a CT of the area last Friday and results are pending. Patient presently unable to void R function at home. In view of history was admitted for further evaluation and therapy Hospital course-patient was admitted hospital lab and x-ray studies obtained.. Patient was seen in consultation by Dr. Flores. We will able to obtain a copy of recent abdominal CT performed by Dr. Jake Velásquez. It reveals leakage from the urinary bladder secondary to spread of the carcinoma of the bladder. He also has a large metastatic node in the right groin. Dr. Velásquez has been treating this with radiation. Patient was also noted to have bilateral hydronephrosis secondary to tumor. After discussing in detail with the family patient was taken to surgery and lateral stents were applied to reduce to hydronephrosis. He was also able to perform procedure to stop the leakage and urinary bladder. After discussing all aspects with patient and family was elected that patient would be discharged to home care under the care of outpatient hospice. There is essentially nothing else that can be done to reduce the cancer.. He will complete radiation treatment to provide some temporary relief. Patient is stable at time of discharge and has a good understanding of disease process and the extremely poor prognosis. We will have hospice contact office on a regular basis and will provide care and keep patient comfortable. Call if problems develop. 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 NEEDS TO SESE OR FOLLOW UP WITH HIM....LET THE HOSPICE NURSE GET IN CONTACT WITH THE OFFICE. [phone]) Discharge Plan - Discharge Data Disposition: Hospice - Home Condition at Discharge: Stable Discharge Diet: advance to your usual diet Activity: ambulate only with your walker Weight Bearing at Discharge: weight bear as tolerated Contact your physician if you experience:: fever over 101, Difficulty voiding - Discharge Medications New HYDROcodone/ACETAMIN 5-325 [[place] 5-325] 2 tablet PO Q4H PRN #0 tablet PRN Reason: Pain Moderate (4-7) Levofloxacin Tab [Levaquin Tab] 500 mg PO DAILY #10 tablet Potassium Chloride Cap/Tab [K Dur] 10 meq PO BID #60 tablet Continue Amlodipine Besylate/Benazepril [Lotrel 10-20 mg Capsule] 1 each PO DAILY #30 capsule Finasteride 5 mg PO DAILY Tamsulosin [Flomax] 0.4 mg PO BIDAC Bicalutamide 50 mg PO DAILY HYDROcodone/ACETAMIN 7.5-325 [[place] 7.5-325] 1 tablet PO Q6H PRN #20 tablet PRN Reason: Pain Discontinued Ciprofloxacin Tab [Cipro Tab] 500 mg PO BID #20 tablet - Follow Up or Referral Follow Up: Gómez Flores MD [Physician] - (DR FLORES STATED THAT IF THE PT. NEEDS TO SESE OR FOLLOW UP WITH HIM....LET THE HOSPICE NURSE GET IN CONTACT WITH THE OFFICE. [phone]) - Forms/Instructions Instructions: Abscess (GEN) Exam - Constitutional Vitals: Period Temp Pulse Resp BP Sys/Dorantes Pulse Ox Last 24 Hr 98.3 F-99.6 F 89-108 18-22 101-134/52-70 92-99 General appearance: no acute distress - Head Head exam: Present: normal inspection - ENT ENT exam: Present: normal exam - Neck Neck exam: Present: normal inspection - Respiratory Respiratory exam: Present: clear to auscultation bilaterally - Cardiovascular Cardiovascular exam: Present: regular rate and rhythm - GI/Abdominal GI/Abdominal exam: Present: other (patient has a large necrotic mass in right groin which is a metastatic lymph node) - Extremities Exam Extremities exam: Present: normal inspection - Back Exam Back exam: Present: normal inspection - Neurological Exam Neurological exam: Present: alert - Psychiatric Psychiatric exam: Present: flat affect - Skin Skin exam: Present: normal color Discharge Results Procedures and tests throughout hospitalization: Pending Orders 07/28/16 10:03 Occult Blood, Stool Routine Labs on day of discharge: Labs from last 24 hours 07/30/16 07/30/16 07/29/16 06:10 06:10 19:14 WBC 24.2 H RBC 3.11 L Hgb 9.4 L Hct 28.8 L MCV 92.6 MCH 30 MCHC 32.6 RDW 14.0 Plt Count 665 H MPV 9.6 Neut % (Auto) 86.4 H Lymph % (Auto) 7.1 L [place] % (Auto) 3.2 Eos % (Auto) 1.4 Baso % (Auto) 0.2 Neut # (Auto) 20.9 H Lymph # (Auto) 1.7 [place] # (Auto) 0.8 Eos # (Auto) 0.4 Baso # (Auto) 0.1 Total Counted 100 Immature Gran % 1.7 Nucleated RBC % 0.0 Immature Gran # 0.40 Segmented Neutrophils 88 H Band Neutrophils 1 Lymphocytes 6 L Monocytes 2 Eosinophils 3 Nucleated RBCs # 0.00 Platelet Estimate Increased Hypochromasia 1+ Ovalocytes Slight Morphology Comment Sodium 147 H Potassium 3.8 3.2 L Chloride 114 H Carbon Dioxide 24 Anion Gap 12.8 BUN 12 Creatinine 0.80 GFR Calculation 121 BUN/Creatinine Ratio 15.00 Glucose 84 Calculated Osmolality 290.4 Calcium 8.0 L DS: Provider Date of admission: 07/23/16 20:02 Primary care physician: . No PCP Attending physician on admission: Cornelius Rowe DO Consults: 07/24/16 08:14 Consult to Physician [CONS] Routine Comment: urinary retention and carcinoma Consulting Provider: Gómez Flores Person Notified: [email or web address] Date Notified: 07/24/16 Time Notified: 08:39 07/25/16 08:30 Consult to Physical Therapy [CONS] Routine Reason for Physical Therapy: Ambulation Start Therapy: Today Discharging clinician: Cornelius Rowe DO
[2016-07-30] MEDS: BICALUTAMIDE 50 MG TABLET PO SCH (08:52)
[2016-07-30] MEDS: PANTOPRAZOLE 40 MG TABLET PO SCH (08:52)
[2016-07-30] MEDS: TAMSULOSIN 0.4 MG CAPSULE PO SCH (08:52)
[2016-07-30] MEDS: DOCUSATE SODIUM 100 MG CAPSULE PO SCH (08:52)
[2016-07-30] MEDS: BENAZEPRIL 40 MG TABLET PO SCH (08:52)
[2016-07-30] MEDS: amLODIPine 10 MG TABLET PO SCH (08:52)
[2016-07-30] MEDS: FINASTERIDE 5 MG TABLET PO SCH (08:53)
[2016-07-30] MEDS ORDERED: POTASSIUM CHLORIDE 10 MEQ TABLET PO SCH (09:00)
[2016-07-30] MEDS ORDERED: LEVOFLOXACIN 500 MG TABLET PO SCH (09:00)
[2016-07-30 11:31] VITALS: BP 134/62
== END 2016-07-30 12:17 | disposition hospice, home (50) | DRG 660 ==
LOC: EDUNIT# → EDBD → N.ED 17:13 → N.EDINP 20:02 → N.2E 20:46
PROVIDERS: ADMIT Family Medicine; ATTEND Family Medicine